=== PATIENT | male | born 1990 | race Caucasian/White ===

== ENCOUNTER 2020-02-07 09:53 | Inpatient (IN) | payer SELFPAY ==
[~2020-02-07] VITALS: Ht 180.3 cm; Wt 104.0 kg
[2020-02-07 16:09] VITALS: Ht 180.3 cm; Wt 104.0 kg
--- NOTE | 2020-02-07 16:09 | NUR ---
REC'D A 29/M IN BIBA FROM [facility] WITH C/O ALOC SINCE THE AM. PT BEEN AT [facility] 02/05/20. STAFF NOTICED PT WAS ALOC, NONVERBAL IN THE AM. PT AWAKE AFTER STERNAL RUB, UNCOMPREHENSIBLE SPEECH, RESP EU, IN ACUTE DISTRESS.
--- NOTE | 2020-02-07 16:30 | NUR ---
I ATTEMPTED VALLADARES INSERTION, PT WOKE UP AND TRIED TO YANK THE VALLADARES OUT.
--- NOTE | 2020-02-07 16:50 | NUR ---
EMT MELINDA SUMMONED ME OVER AND REPORTED PT URINATED ON THE GURNEY AND FLOOR. INFORMED PT THE NEED TO INSERT VALLADARES D/T ALTERED MENTAL STATUS. PT CONTINUES TO MOAN WITH INCOMPREHENSIBLE SPEECH. PT SLID DOWN THE GURNEY, UNABLE TO AMBULATE WITH STEADY GAIT.
--- NOTE | 2020-02-07 17:00 | NUR ---
PT CONTINUES TO BE UNCOOPERATIVE, SITTING ON THE FLOOR IN URINE. INSTRUCTED PT TO RETURN TO THE RQUITMAN, PT REFUSED. ASKED PT WHY HE IS HERE. PT UNABLE TO PROVIDE A COMPREHENSIBLE ANSWER. TIFFANY LAWRENCE, MYSELF, SULMA Da Silva AND FLAQUITO SIGNLETARY HELPED PT ONTO THE [facility]. 4 POINTS RESTRAINTS PLACED TO STAR WRIST AND STAR LLE.
--- NOTE | 2020-02-07 18:38 | NUR ---
REMOVED STAR LOWER EXTREMITIES RESTRAINTS.
[2020-02-07 18:50] LABS: BASOPHIL % 0.3 % (0.2-1.5); PLATELET COUNT 366 x10^3mcL (152-348); RED CELL DISTRIBUTION WIDTH 13.9 % (12.1-16.2)
--- NOTE | 2020-02-07 19:00 | NUR ---
PT COOPERATIVE ON CHRISTIANO. REMOVED STAR WRIST RESTRAINTS
--- NOTE | 2020-02-07 19:04 | NUR ---
PT TAKEN CT VIA [facility].
[2020-02-07 19:14] LABS: FREE T4 1.6 ng/dL (0.76-1.46); FREE THYROXINE INDEX 3.2 ug/dL (1.4-4.5); T4(THYROXINE) 8.3 ug/dL (4.7-13.3)
--- NOTE | 2020-02-07 19:15 | NUR ---
PT RETURNED TO H7 FROM CT WITHOUT INCIDENT.
[2020-02-07 19:23] LABS: UA SPECIFIC GRAVITY 1.025 (1.005-1.035); microscopic required? YES; urine erythrocyte TRACE (NEGATIVE)
[2020-02-07 19:25] LABS: T3 TOTAL 0.67 ng/mL
--- NOTE | 2020-02-07 19:52 | NUR ---
INITIATED ROCEPHIN AT 100ML/HR. PLEASE SEE EMAR.
[2020-02-07 19:57] LABS: ALBUMIN 3.5 g/dL (3.4-5.0); ALKALINE PHOSPHATASE 47 U/L (46-116); ALT/SGPT 137 U/L (16-63); AST/SGOT 73 U/L (15-37); BILIRUBIN TOTAL 1.3 mg/dL (0.20-1.00); C REACTIVE PROTEIN 1.3 mg/dL (<=0.9); CALCIUM 8.2 mg/dL (8.5-10.1); CARBON DIOXIDE 21.7 mmol/L (21-32); CHLORIDE SERUM 108 mmol/L (98-107); CREATININE SERUM 1.3 mg/dL (0.7-1.3); GFR1 > 60 mL/min; GLUCOSE SERUM 118 mg/dL (74-106); POTASSIUM SERUM 3.9 mmol/L (3.5-5.1); SODIUM SERUM 142 mmol/L (136-145); TOTAL PROTEIN, SERUM 7.6 g/dL (6.4-8.2)
[2020-02-07 20:02] LABS: CK-MB 3.8 ng/mL (0-3.6); ERYTHROCYTE SED RATE 57 mm/hr (0-15)
--- NOTE | 2020-02-07 20:07 | NUR ---
PT ASLEEP, EASILY AROUSABLE, RESP EU, IN NO ACUTE DISTRESS.
--- NOTE | 2020-02-07 20:22 | NUR ---
INITIATED ZPAK @ 250ML/HR. PLEASE SEE EMAR.
[2020-02-07 21:13] LABS: AMPHETAMINE QUAL UR NONE DETECTED (See below)
--- NOTE | 2020-02-07 21:47 | NUR ---
PROVIDED UPDATE TO BRIAN HUDDLESTON FROM [facility].
--- NOTE | 2020-02-07 22:23 | NUR ---
STAR PINPOINT PUPILS NOTED. DR CHURCHILL AT BEDSIDE. 0.4MG NARCAN, NO CHANGE 1MG NARCAN, NO CHANGE.
--- NOTE | 2020-02-07 22:23 | NUR ---
DR CHURCHILL AT BEDSIDE FOR REEVALUATION. PT WAKES UP AFTER STERNAL RUB, CONTINUES TO GARGLE INCOMPREHENSIBLE SPEECH, RESP EU, IN NO ACUTE DISTRESS.
--- NOTE | 2020-02-07 22:46 | NUR ---
PER PT, DR CHURCHILL, PREPARE FOR INTUBATION AND ANOTHER CT.
--- NOTE | 2020-02-07 23:01 | NUR ---
PT CONTINUES TO GARGLE INCOMPREHENSIBLE SPEECH, MOVES HIS EYES WHEN ASKED BY DR CHURCHILL TO "LOOK AT ME".
--- NOTE | 2020-02-07 23:04 | NUR ---
REPORT GIVEN TO FLAQUITO MCLEOD TO ASSUME CARE OF THE PT.
--- NOTE | 2020-02-07 23:18 | NUR ---
DR CHURCHILL AT BEDSIDE FOR INTUBATION.
--- NOTE | 2020-02-08 00:10 | NUR ---
TOOK OVER CARE OF PATIENT
--- NOTE | 2020-02-08 01:02 | NUR ---
PT TAKEN TO CT VIA [facility].
--- NOTE | 2020-02-08 01:22 | NUR ---
PT RETURNED TO BD [address] WITHOUT INCIDENT.
[2020-02-08 02:15] VITALS: BP 138/96
[2020-02-08 03:18] LABS: PHOSPHOROUS 3.1 mg/dL (2.5-4.9)
[2020-02-08 03:28] LABS: CHOLESTEROL/HDL RATIO 5.7
[2020-02-08 05:35] VITALS: BP 128/86
--- NOTE | 2020-02-08 05:35 | NUR ---
POST ABG RESULTS. DECREASED RESPIRATORY RATE FROM 20 TO 16 AND FIO2 FROM 15L/M TO 10L/M.
--- NOTE | 2020-02-08 07:05 | NUR ---
PT REMAINS IN NO ACUTE DISTRESS. WILL CONTINUE TO MONITOR FOR SAFETY
[2020-02-08 07:22] VITALS: BP 124/84
--- NOTE | 2020-02-08 07:27 | NUR ---
REPORT RECIEVED FROM FLAQUITO FRIAS. I WILL ASSUME FURTHER CARE OF THIS PT
--- NOTE | 2020-02-08 07:40 | NUR ---
PT NOTED LAYING IN ER GURNEY IN POSITION OF COMFORT. PT INTUBATED AT THIS TIME. RESP E/U, O2SAT 99%. PT LAYING IN RELAXED POSITION AT THIS TIME, NO DISTRESS NOTED. PT REMAINS IN BILATERAL UPPER RESTRAINTS. MEDICATIONS INFUSING PER EMAR ORDERS. VITAL SIGNS STABLE. WILL CONTINUE TO MONITOR
[2020-02-08 10:07] LABS: BASOPHIL % 0.1 % (0.2-1.5); PLATELET COUNT 335 x10^3mcL (152-348); RED CELL DISTRIBUTION WIDTH 13.9 % (12.1-16.2)
[2020-02-08 10:25] LABS: ALKALINE PHOSPHATASE 48 U/L (46-116); ALT/SGPT 137 U/L (16-63); AST/SGOT 68 U/L (15-37); BILIRUBIN TOTAL 1.2 mg/dL (0.20-1.00); CALCIUM 8.3 mg/dL (8.5-10.1); CARBON DIOXIDE 22.5 mmol/L (21-32); CHLORIDE SERUM 112 mmol/L (98-107); CREATININE SERUM 1.2 mg/dL (0.7-1.3); GFR1 > 60 mL/min; GLUCOSE SERUM 125 mg/dL (74-106); MAGNESIUM 2.9 mg/dL (1.8-2.4); PHOSPHOROUS 2.7 mg/dL (2.5-4.9); POTASSIUM SERUM 4.2 mmol/L (3.5-5.1); SODIUM SERUM 147 mmol/L (136-145); TOTAL PROTEIN, SERUM 6.9 g/dL (6.4-8.2)
[2020-02-08 10:27] LABS: ALBUMIN 3.2 g/dL (3.4-5.0)
[2020-02-08 11:23] LABS: CK-MB 4.2 ng/mL (0-3.6)
--- NOTE | 2020-02-08 13:36 | NUR ---
PT REMAINS IN POSITION OF COMFORT IN ER GURNEY. BILATERAL UPPER AND LOWER EXTREMITIES EXTENDED IN RELAXED POSITION. NO DISTRESS NOTED. RESP E/U AT THIS TIME O2 SAT 97% ON VENTILATOR. PROPOFOL INFUSING AT 50MCG/KG/MIN PER EMAR ORDERS. SIDE RAILS UP X 2, ER GURNEY IN LOWEST LOCKED POSITION. WILL CONTINUE TO MONITOR
--- NOTE | 2020-02-08 14:47 | NUR ---
PT NOTED LAYING WITH BILATERAL UPPER AND LOWER EXTREMITIES EXTENDED IN RELAXED POSITION. PT EYES REMAIN CLOSED, NO DISTRESS NOTED. PROPOFOL TITRATED DOWN TO 45MCG/KG/MIN PER EMAR ORDERS. WILL CONTINUE TO MONITOR
--- NOTE | 2020-02-08 15:08 | NUR ---
SPOKE TO RESIDENT MD REGARDING FAMILY UPDATE. PER RESIDENT, SHE WILL REACH OUT TO FAMILY TO UPDATE THEM ON PT PLAN OF CARE. WILL FOLLOW UP
--- NOTE | 2020-02-08 16:24 | NUR ---
PT LAYING IN ER GURNEY, EYES CLOSED, BILATERAL UPPER AND LOWER EXTREMITIES EXTENDED IN RELAXED POSITION, NO DISTRESS NOTED. RESP E/U, O2SAT 98% ON VENTILATOR. SAFETY PRECAUTIONS IN PLACE, SIDE RAILS UP X 2, GURNEY IN LOWEST, LOCKED POSITION. PT REMAINS IN BILATERAL UPPER RESTRAINTS. PROPOFOL INFUSING AT 45MCG/KG/MIN PER EMAR ORDERS. WILL CONTINUE TO MONITOR
[2020-02-08 17:15] VITALS: BP 131/84
--- NOTE | 2020-02-08 17:50 | NUR ---
PT NOTED LAYING IN POSITION OF COMFORT, EYES CLOSED, ALL EXTREMITIES EXTENDED AND RELAXED. PT RESP E/U ON VENTILATOR O2SAT 100%, NO DISTRESS NOTED. PROPOFOL TITRATED DOWN TO 40MCG/KG/MIN PER EMAR ORDERS. WILL CONTINUE TO MONITOR
[2020-02-08 19:30] VITALS: BP 123/90
--- NOTE | 2020-02-08 19:41 | NUR ---
REPORT GIVEN TO FLAQUITO ALVARENGA. SHE WILL ASSUME FURTHER CARE OF THIS PT
--- NOTE | 2020-02-08 19:47 | NUR ---
RECIEVED REPORT FROM JR HUDDLESTON TO ASSUME CARE OF PT.
--- NOTE | 2020-02-08 20:17 | NUR ---
FIRST CONTACT WITH PT. PT IS [place] IN [place]. PT IS INTUBATED AND ON VENT. HANDLING WELL. VSS. PT IS CURRENTLY ON PROPOFOL DRIP RUNNING AT 40 MCG/KG/MIN. PT TOLERATING WELL. NO ACUTE DISTRESS OR PAIN NOTED AT THIS TIME. WILL CONTINUE TO MONITOR.
--- NOTE | 2020-02-08 22:15 | NUR ---
PT NOTED TO BE IN POSITION OF COMFORT. BILATERAL UPPER AND LOWER EXTREMITIES IN EXTENDED AND RELAXED POSITION. PT REMAINS STABLE AND NO ACUTE DISTRESS NOTED AT THIS TIME. WILL CONTINUE TO MONITOR CLOSELY.
--- NOTE | 2020-02-08 23:19 | NUR ---
PT NOTED TO BE IN RELAZED POSITION. PT EYES CLOSED, AND BILATERAL UPPER AND LOWER EXTREMITIES ARE EXTENDED AND IN RELAXED POSITION. PT UNDER SEDATION AND TOLERATING WELL AT THIS TIME. WILL CONTINUE TO CLOSELY MONITOR.
--- NOTE | 2020-02-09 01:36 | NUR ---
PT IS CURRENTLY SUPINE, AND INTUBATED. PT SHOWS NO SIGN OF DISTRESS OR PAIN. PT IS SEDATED WITH PROPOFOL @ 30MCG/KG/MIN. VSS, WILL CONTINUE TO CLOSELY MONITOR.
[2020-02-09 02:10] VITALS: BP 128/90
--- NOTE | 2020-02-09 02:48 | NUR ---
PT REMAINS IN POSITON OF COMFORT. NO AGITATION OR ACUTE DISTRESS NOTED AT THIS TIME. PT EYES CLOSED. ALL EXTREMITIES ARE RELAXED, WILL CONTINUE TO MONITOR.
--- NOTE | 2020-02-09 03:38 | NUR ---
PT REMAINS IN POSITION OF COMFORT. PT EYES CLOSED, AND BILATERAL UPPER AND LOWER EXTREMITIES ARE IN RELAXED AND EXTENDED POSTION. NO DISTRESS NOTED. PT VS REMAINS STABLE AND TOLERATING SEDATION WELL. WILL CONTINUE TO MONITOR.
--- NOTE | 2020-02-09 04:18 | NUR ---
PT REMAINS IN POSTION OF COMFORT. NO ACUTE DISTRESS NOTED. PT EYES ARE CLOSED AND NOTED TO BE RELAXED. WILL CONTINUE TO MONITOR.
--- NOTE | 2020-02-09 05:31 | NUR ---
PT NOTED TO BE LYING IN POSTION OF COMFORT. EYES CLOSED, ALL EXTREMITIES RELAXED. NO ACUTE DISTRESS NOTED. VSS, AND PROPOFOL TITRATED DOWN TO 30 MCG/KG/MIN PER EMAR ORDERS. WILL CONTINUE TO MONITOR CLOSELY.
--- NOTE | 2020-02-09 06:25 | NUR ---
PT REMAINS CALM WITH NO SIGNS OF DISTRESS. PT EYES CLOSED AND BILATERAL UPPER AND LOWER EXTREMITIES RELAXED. NO ACUTE DISTRESS NOTED AT THIS TIME. PT REMAINS INTUBATED AND SEDATED. PROPOFOL 30 MCG/KG/MIN RUNNING. WILL CONTINUE TO MONITOR.
--- NOTE | 2020-02-09 07:30 | NUR ---
GAVE REPORT TO LYNETTE HUDDLESTON TO ASSUME FURTHER CARE OF PT.
--- NOTE | 2020-02-09 07:50 | NUR ---
PT LAYING ON GURNEY- RSS 4, ON VENTILATOR, AND RESTRAINED ON BILATERAL UPPER EXTREMITIES. PT ON PROPOFOL DRIP AND APPEARED TO BE TOLERATING WELL. PLACED HOB >30 DEGREES AND LOWERED BED TO GROUND WITH BED RAILS UP. NOTED PT VALLADARES CATH WITH AN OUTPUT OF 10ML INDIGO CLOUDY URINE. NOTED SOILED BED SHEETS AND BOXER SHORTS. NOTED LEAKAGE OF URINE FROM THE URETHRA ALONGSIDE THE CATHETHER. ATTEMPTED TO IRRIGATE VALLADARES CATH BUT MET WITH SOME RESISTANCE. NOTED WHAT APPEARS TO BE CALCIFIED URINE IN THE PROXIMAL END OF THE CATHETER. NOTED A DISTENDED BLADDER. VALLADARES CATH WAS REMOVED AND NOTED INCONTINENCE. PLACED A NEW VALLADARES CATH 14FR AND RECEIVED AN OUTPUT OF 400ML INDIGO CLOUDY URINE. PT WAS SUCTIONED AND DRIED, BED SHEETS REPLACED. NOTED CLODUY VELEZ SPUTUM. PT REMAINS IN DIRECT VIEW OF NURSES STATION. NO SKIN BREAKDOWN NOTED IN BILATERAL UPPER SOFT RESTRAINTS. PT BOXER SHORTS REMOVED AND PLACED IN BELONGINGS BAG. PT WAS PLACED IN A NEW GOWN.
--- NOTE | 2020-02-09 09:05 | NUR ---
MD SALAS AT BEDSIDE. STATED HE WANTS TO EXTUBATE THE PT. PROPOFOL DRIP STOPPED. RT NOTIFIED. STATED HE WILL BE BACK FOR EXTUBATION ONCE PT IS AWAKE.
[2020-02-09 09:20] VITALS: BP 138/94
--- NOTE | 2020-02-09 09:36 | NUR ---
PT PLACED BACK ON PROPOFOL DRIP 30MCG/KG/MIN PER MD.
[2020-02-09 10:16] LABS: BASOPHIL % 0.6 % (0.2-1.5); PLATELET COUNT 265 x10^3mcL (152-348); RED CELL DISTRIBUTION WIDTH 14.3 % (12.1-16.2)
[2020-02-09 10:19] LABS: CALCIUM 8.4 mg/dL (8.5-10.1); CARBON DIOXIDE 24.7 mmol/L (21-32); CHLORIDE SERUM 114 mmol/L (98-107); CREATININE SERUM 1.1 mg/dL (0.7-1.3); GFR1 > 60 mL/min; GLUCOSE SERUM 130 mg/dL (74-106); MAGNESIUM 2.6 mg/dL (1.8-2.4); POTASSIUM SERUM 4.2 mmol/L (3.5-5.1); SODIUM SERUM 148 mmol/L (136-145)
--- NOTE | 2020-02-09 11:00 | NUR ---
LEFT HAND IV INFILTRATED. NEW IV PLACED ON LEFT WRIST. PT REPOSITIONED TO RIGHT SIDE TO RELIEVE SACRAL PRESSURE. PT SEDATED AND TOLERATING PROPOFOL AND VENTILATOR.
--- NOTE | 2020-02-09 12:00 | NUR ---
CALLED [facility] FOR POSSIBLE MED REC - NO ANSWER FROM UNIT
--- NOTE | 2020-02-09 13:39 | NUR ---
PT REPOSITIONED TO LEFT SIDE. TOLERATING VENTILATOR AND SEDATION. REDUCED PROPOFOL TO 20MCG/KG/MIN.
--- NOTE | 2020-02-09 14:17 | NUR ---
TOTAL URINE OUTPUT APPROX 800ML, INDIGO CLOUDY
--- NOTE | 2020-02-09 15:03 | NUR ---
SPOKE TO PT'S SISTER KARINA WHO CALLED FOR AN UPDATE. STATES THAT THE PT SUFFERS FROM INSOMNIA. KARINA WAS UNABLE TO RETRIEVE A MED REC FOR THE PT.
[2020-02-09 15:45] VITALS: BP 146/64
--- NOTE | 2020-02-09 16:29 | NUR ---
PT REMAINS ON GURNEY S/F. INCREASED PROPOFOL DRIP TO 30MCG/KG/MIN D/T INCREASED AGITATION. 800ML TOTAL URINE OUTPUT NOTED. REMAINS ON BILATERAL WRIST RESTRAINTS.
--- NOTE | 2020-02-09 18:35 | NUR ---
APPROX 1000ML TOTAL URINE OUTPUT. PROPOFOL INCREASED TO 40MCG/KG/MIN FOR RSS 4 D/T PT OPENING EYES AND WAS ABLE TO NURSES' ASSOCIATION COUNSELOR MY FINGERS UPON COMMAND.
--- NOTE | 2020-02-09 19:00 | NUR ---
PROPOFOL REPLACED WITH A NEW BOTTLE. IV TUBING ALSO REPLACED.
--- NOTE | 2020-02-09 20:24 | NUR ---
RECIEVED REPORT FROM LYNETTE HUDDLESTON. I WILL ASSUME FURTHER CARE OF PT.
--- NOTE | 2020-02-09 20:32 | NUR ---
FIRST CONTACT WITH PT. PT IS LAYING SUPINE IN GURNEY, BILATERAL UPPER AND LOWER EXTREMITES IN RELAXED POSTION. PT FACE RELAXED AND NO SIGNS OF DISTRESS NOTED AT THIS TIME. VSS AND WILL CONTINUE TO CLOSELY MONITOR.
[2020-02-09 21:10] VITALS: BP 140/96
--- NOTE | 2020-02-09 21:22 | NUR ---
PT CURRENTLY IN [facility] IN SEMI FOWLERS POSITION. EYES CLOSED AND BILATERAL UPPER AND LOWER EXTREMITIES EXTENDED AND IN RELAXED POSTION. FACE RELAXED AND NO SIGNS OF DISTRESS OR PAIN AT THIS TIME. PROPOFOL INFUSING PER MD ORDER AT 40 MCG/KG/MIN. SEDATION EFFECTIVE AT THIS TIME. WILL CONTINUE TO CLOSELY MONITOR.
--- NOTE | 2020-02-09 22:53 | NUR ---
PT LAYING IN POSITION OF COMFORT WITH EYES CLOSED. PT BILATERAL UPPER AND LOWER EXTREMITIES EXTENDED AND IN RELAXED POSITION. PT VSS AND NO ACUTE DISTRESS NOTED. ET TUBE IN PLACE AND TOLERATING SEDATION WELL AT THIS TIME. PROPOFOL RUNNING AT 40 MCG/KG/MIN. WILL CONTINUE TO MONITOR.
--- NOTE | 2020-02-09 23:49 | NUR ---
PT IS LAYING IN POSITION OF COMFORT WITH EYES CLOSED. PT BILATERAL UPPER AND LOWER EXTREMITIES ARE EXTENDED AND IN RELAXED POSITION. PT VSS AND NO SIGNS OF ACUTE DISTRESS OR PAIN NOTED AT THIS TIME. PT PROPOFOL DRIP RUNNING AT A RATE OF 40 MCG/KG/MIN, PT TOLERATING SEDATION LEVEL WELL AT THIS TIME. WILL CONTINUE TO MONITOR.
[2020-02-10] VITALS (10 sets, daily range): BP systolic 117–143; BP diastolic 64–92
--- NOTE | 2020-02-10 00:46 | NUR ---
PT IS LAYING SUPINE IN GURNEY IN POSITION OF COMFORT. EYES CLOSED AND FACE IS RELAXED. PT BILATERAL UPPER AND LOWER EXTREMITIES ARE EXTENDED AND IN RELAXED POSITION. PT VSS AND NO ACUTE DISTRESS OR PAIN NOTED AT THIS TIME. WILL CONTINUE TO CLOSELY MONITOR.
--- NOTE | 2020-02-10 01:50 | NUR ---
PT IS CURRENTLY LAYING IN GURNEY IN POSITION OF COMFORT. ALL EXTREMITIES ARE IN RELAXED POSITION, FACE IS RELAXED NO GRIMACING OR SIGNS OF DISTRESS NOTED AT THIS TIME. PROPOFOL DRIP IS 40 MCG/KG/HR. PT TOLERATING SEDATION WELL AT THIS TIME. VSS AND WILL CONTINUE TO MONITOR.
--- NOTE | 2020-02-10 03:50 | NUR ---
RECEIVED REPORT FROM CANE WEIGHER HELPERFLAQUITO FIELDS. PT IS INTUBATED AND SEDATED ON PROP 40 MCG/KG/MIN. PT ETT 8.0 @ 25 LL. OGT NO SUCTION, NO FEEDING AT THIS TIME. PT HAS NS INFUSING AT 80 ML/HR. LUNG SOUNDS CLEAR, S1S2 HEART SOUNDS AUSCULTATED. WILL ASSESS.
[2020-02-10 07:08] LABS: BASOPHIL % 0.4 % (0.2-1.5); PLATELET COUNT 223 x10^3mcL (152-348); RED CELL DISTRIBUTION WIDTH 14.2 % (12.1-16.2)
[2020-02-10 07:19] LABS: CALCIUM 8.7 mg/dL (8.5-10.1); CARBON DIOXIDE 25.6 mmol/L (21-32); CHLORIDE SERUM 114 mmol/L (98-107); GFR1 > 60 mL/min; GLUCOSE SERUM 108 mg/dL (74-106); MAGNESIUM 2.7 mg/dL (1.8-2.4); POTASSIUM SERUM 4.3 mmol/L (3.5-5.1); SODIUM SERUM 148 mmol/L (136-145)
--- NOTE | 2020-02-10 09:40 | NUR ---
VENT CHANGED FOR CPAP TRIALS LATER. VENT CHANGED WITHOUT INCIDENT
--- NOTE | 2020-02-10 10:05 | NUR ---
DR VASQUEZ AT BEDSIDE. ALL UPDATES PROVIDED, MADE AWARE OF Na:148. AWAITING NEW ORDERS.
--- NOTE | 2020-02-10 12:00 | NUR ---
CPAP TRIAL INITIATED AT THIS TIME. PT IS STABLE. WILL CONTINUE TO MONITOR PT.
--- NOTE | 2020-02-10 12:30 | NUR ---
PT WAS PLACED ON CPAP OF 10/[address] SALAS
--- NOTE | 2020-02-10 12:35 | NUR ---
VITAL AF 1.2 INITIATED AT THIS TIME. INFUSING AT 10ML/HR (GOAL:50ML/HR) WITH 50ML FWF Q4H. WILL CONTINUE TO MONITOR.
--- NOTE | 2020-02-10 13:25 | NUR ---
PT SWITCHED BACK TO ACVC DUE TO TACHPNEA RR;30'S AND TACHYCARDIA.
--- NOTE | 2020-02-10 13:25 | NUR ---
PT TACHYCARDIC, RR TRENDING UP. RTKATHY MADE AWARE. PT SWITCHED OVER FROM CPAP BACK TO VC MODE. RATE:16, VT:500, PEEP:5, 40%
--- NOTE | 2020-02-10 16:09 | NUR ---
DR MARTELL CALLED AT THIS TIME. PT RESTLESS, TACHYCARDIC IN THE 140'S AND RR TRENDINGG HIGH. AWAITING NEW ORDERS. WILL CONTINUE TO MONITOR PT.
--- NOTE | 2020-02-10 17:54 | NUR ---
CALLED RESIDENT AT THIS TIME, PT CONTINUES TO BE RESTLESS AND ANXIOUS. AWAITING CALL-BACK.
--- NOTE | 2020-02-10 18:03 | NUR ---
DR. MARTELL CALLED BACK AND NOTIFIED PT CONTINUES TO BE ANXIOUS, TACHYCARDIC AND TACHYPNEIC DESPITE ATIVAN ADMINISTRATION. DR TILLMAN SHE WILL PUT IN ORDERS.
--- NOTE | 2020-02-10 18:52 | NUR ---
RESTLESSNESS AND ELEVATED HR AND RR CONTINUE. PT REPOSITIONED FOR COMFORT, HOB ELEVATED. DR. MARTELL MADE AWARE. AWAITING NEW ORDERS.
--- NOTE | 2020-02-10 19:03 | NUR ---
FIO2 INCREASED TO 100% DUE TO TACHYCARDIA 140'S
--- NOTE | 2020-02-10 19:25 | NUR ---
REPORT TO FLAQUITO BUSBY. ALL QUESTIONS ANSWERED.
--- NOTE | 2020-02-10 20:46 | NUR ---
PT TEMPERATURE 100.4, GAVE 650 MG TYLENOL.
[2020-02-11] VITALS (8 sets, daily range): BP systolic 11–127; BP diastolic 69–79
[2020-02-11 06:58] LABS: CALCIUM 8.4 mg/dL (8.5-10.1); CARBON DIOXIDE 25.1 mmol/L (21-32); CHLORIDE SERUM 111 mmol/L (98-107); GFR1 > 60 mL/min; GLUCOSE SERUM 149 mg/dL (74-106); MAGNESIUM 2.3 mg/dL (1.8-2.4); PHOSPHOROUS 2.9 mg/dL (2.5-4.9); POTASSIUM SERUM 4.1 mmol/L (3.5-5.1); SODIUM SERUM 142 mmol/L (136-145)
--- NOTE | 2020-02-11 07:41 | NUR ---
CALLED RTBRANNON, AND ASKED TO LOWER FIO2. CURRENT FIO2 IS 100% AND PT SPO2 HAS BEEN AT 100% SINCE SENIOR LEAD DEVELOPER. RT WILL COME AND LOWER FIO2.
--- NOTE | 2020-02-11 08:00 | NUR ---
TITRATED PROPOPHOL FROM 50 TO 40MCG/KG/MIN. PT VS: BP: 125/79, HR: 120, RR: 23, SPO2: 100%, T: 100.8. WILL CONTINUE TO TITRATE APPROPRIATE.
--- NOTE | 2020-02-11 08:35 | NUR ---
TITRATED FIO2 FROM 100 TO 90% D/T PT SPO2 OF 100%. RT HAS NOT COME BY YET, WILL LET RT KNOW OF CHANGE IN SETTING.
--- NOTE | 2020-02-11 08:42 | NUR ---
UPDATED DR. SALAS ON PT STATUS AT BEDSIDE. NEW ORDERS TO INITIATE PRECEDEX GTT WILL BE IMPLEMENTED. DR. SALAS LOWERED FIO2 FROM 90 TO 60% D/T PT SPO2 OF 100%.
--- NOTE | 2020-02-11 09:10 | NUR ---
TITRATED FIO2 FROM 60 TO 50% D/T SPO2 OF 100%. CUURENT SPO2 IS 99%. WILL UPDATE RT ON CHANGE IN FIO2.
--- NOTE | 2020-02-11 09:20 | NUR ---
MODERATE AMOUNT OF BLOOD-TINGED SECRETIONS NOTED WITH DEEP IN-LINE SUCTIONING. MODERATE AMOUNT OF CLEAR SECRETIONS NOTED FROM MOUTH WITH YANKEUR. WILL UPDATE RT ON FINDINGS.
--- NOTE | 2020-02-11 10:40 | NUR ---
CPAP TRIAL INITIATED BY RTBERNABE, THEN ENDED AFTER 1 MINUTE D/T PT HR OF 130. WILL CALL RT TO RESTART CPAP AFTER PRECEDEX ORDER VERIFIED AND INITIATED. FIO2 LOWERED FROM 50 TO 40%. SPO2: 100%
--- NOTE | 2020-02-11 11:32 | NUR ---
UPDATED DR. VASQUEZ AND RESIDENT TEAM ON PT STATUS AT BEDSIDE. UPDATED ON CPAP TRIAL, PRECEDEX GTT INITIATION, BLOOD-TINGED SPUTUM IN ETT, BLOOD IN VALLADARES, AND HEPARIN HELD THIS AM. ASKED IF D5 MAINTENANCE FLUIDS WERE STILL NEEDED, WAS TOLD TO DC BECUASE TF HAD BEEN INITIATED. WILL IMPLEMENT NEW ORDERS AND UPDATE NEEDED.
--- NOTE | 2020-02-11 11:45 | NUR ---
TITREATED FIO2 FROM 40 TO 30%. SPO2 CURRENTLY 98%. WILL UPDATE RT AND TITRATE FIO2 NEEDED.
--- NOTE | 2020-02-11 12:15 | NUR ---
INITIATED PRECEDEX GTT AT 0.2MCG/KG/HR AND INCREASED PROPOFOL FROM 10 TO 15MCG/KG/MIN. HR: 125, BP: 132/89, SPO2: 96%, RR: 31. WILL CONTINUE TO TITRATE MEDICATIONS NEEDED.
[2020-02-11 13:14] LABS: BASOPHIL % 0.4 % (0.2-1.5); PLATELET COUNT 191 x10^3mcL (152-348); RED CELL DISTRIBUTION WIDTH 14.1 % (12.1-16.2)
--- NOTE | 2020-02-11 13:30 | NUR ---
INITIATED CPAP WITH RTBERNABE, AT THIS TIME. PT TOLERATING CPAP TRIAL WELL, VS: BP- 123/73, SPO2: 97%, HR: 112BPM, RR: 26. WILL CONTINUE TO CPAP LONG PT TOLERATES IT.
--- NOTE | 2020-02-11 15:05 | NUR ---
PT EXTUBATED AT THIS TIME WITH RT BERNABE. COOL AEROSOL TREATMENT GIVEN AT 1320. VS STABLE: BP: 112/77 MAP: 94, HR: 115, RR: 29, SPO2 97%. PT ON 28% COOL MIST.
--- NOTE | 2020-02-11 16:31 | NUR ---
UNABLE TO RETRIEVE UIRINE SAMPLE FOR UA AT THIS TIME D/T NO PRODUCTION OF FRESH URINE BY PT. WILL COLLECT SAMPLE WHEN PT MAKES URINE.
--- NOTE | 2020-02-11 16:50 | NUR ---
IRRIGATED VALLADARES CATHETER WITH 40CC OF STERILE WATER. SMALL AMOUNT OF CLEAR, YELLOW URINE DRAINED AFTERWARDS.
[2020-02-11 20:40] LABS: UA SPECIFIC GRAVITY >=1.030 (1.005-1.035); microscopic required? YES; urine erythrocyte 2+ (NEGATIVE)
[2020-02-12 00:30] VITALS: BP 124/69
[2020-02-12 04:00] VITALS: BP 128/80
[2020-02-12 05:05] LABS: PLATELET COUNT 175 x10^3mcL (152-348); RED CELL DISTRIBUTION WIDTH 13.9 % (12.1-16.2)
[2020-02-12 05:42] LABS: CALCIUM 8.6 mg/dL (8.5-10.1); CHLORIDE SERUM 109 mmol/L (98-107); GFR1 > 60 mL/min; GLUCOSE SERUM 124 mg/dL (74-106); MAGNESIUM 2.5 mg/dL (1.8-2.4); PHOSPHOROUS 2.8 mg/dL (2.5-4.9); POTASSIUM SERUM 4.4 mmol/L (3.5-5.1); SODIUM SERUM 145 mmol/L (136-145)
[2020-02-12 08:00] VITALS: BP 123/71
--- NOTE | 2020-02-12 09:01 | NUR ---
DR SALAS AT BEDSIDE AT ALL UPDATES PROVIDED. HE STS TO KEEP PATIENT IN ICU AT THIS TIME SINCE PATIENT IS TACHYCARDIC AND UNABLE TO FOLLOW COMMANDS, NEW ORDERS FOR MRI AND TELE NEURO. NO OTHER NEW ORDERS. PRIMARY RN DONNIE MADE AWARE, WILL CARRY OUT ORDERS AND CONTINUE TO MONITOR PT. PT STABLE AT THIS TIME.
--- NOTE | 2020-02-12 09:05 | NUR ---
INFORMED [facility] BUR[facility] OF DR SALAS ORDERING A MRI OF BRAIN, HE STS HE WILL ASK HIGHER UP TO SEE IF THIS STUDY RECEIVES APPROVAL. PATIENT STABLE WILL CONTINUE TO MONITOR AND AWAIT APPROVAL AT THIS TIME.
--- NOTE | 2020-02-12 09:11 | NUR ---
PATIENT IS A 29 YEAR OLD MALE ADMITTED TO [place] FROM [facility] FOR ACUTE PYSCHOTIC DISORDER. LOWER LOBE PNA WAS NOTED ON ADMISSION. PATIENT WAS COMBATIVE BIPAP AND VALLADARES WERE ATTEMTED WITH NO LUCK DUE TO HIM PULLING ON ALL LINES. ON 02/06 HE WAS INTUBATED VALLADARES WAS PLACED 14FR DRAINING NOW. HE WAS EXTUBATED ON 02/10. REPORTED RECIVED FROM NOC SHIFT NURSE PATIENT IS STILL SEDATED AND NOT FOLLOWING COMMANDS. UPON AM ASSESSMENT PATIENT WAS ABLE TO SQUEEZE HAND WHEN PROMPTED BUT REMAINS NON-VERBAL. NC IN PLACE 3L SATURATING 96%. SINUS TACHY NOTED ON MONITOR 103BMP. DR SAALS ROUNDED MRI ORDERED FOR NEURO ALTERATION. INFORMED CHARGE NURSE PRECEDEX WAS FOUND RUNNING, IT WAS STOPPED. THIS COULD BE AFFECTING HIS NEURO STATE AT THIS TIME.
--- NOTE | 2020-02-12 09:41 | NUR ---
PSYCH CONSULT ORDERED AND PENDING AT THIS TIME FOR EVALUATION TO AID IN DISCHARGE BACK TO [facility]. PRECEDEX STOPPED NEURO CONSULT NOT ORDERED YET MAY NOT BE WARRANTED YET PENDING MEDICATION ELIMINATION.
--- NOTE | 2020-02-12 10:49 | NUR ---
DR SALAS INFORMED OF PATIENT BEING ON PRECEDEX, HE STS TO CANCEL MRI AND TELE NEURO AND CONTINUE TO MONITOR PATIENT. PT STABLE WILL CONTINUE TO MONITOR.
--- NOTE | 2020-02-12 11:38 | NUR ---
SPOKE WITH KARINA AND UPDATED HER REGARDING PLAN OF CARE FOR THE DAY: SHE WAS ASKING IF HE IS MORE LUCID TO BE ABLE TO SPEAK WITH HIM, I EXPLAINED HE IS STILL DOWSY AND WE ARE MONITORING HIM, HE WAS ABLE TO FOLLOW SIMPLE COMMANDS BUT REMAINS NON VERBAL. SHE IS AWARE AND WILL CALL BACK LATER FOR A UPDATE IF SHE HAS TIME.
--- NOTE | 2020-02-12 11:47 | NUR ---
UPON ASSESSMENT PATIENT IS MORE AWAKE: ABLE TO SAY YES AND NO EXPLAINED KARINA CALLED HE WANTED TO KNOW FOR WHAT. HE STATES HE IS NOT IN PAIN JUST TIRED. WILL CONTINUE TO MONITOR THE PATIENT.
[2020-02-12 12:00] VITALS: BP 118/66
--- NOTE | 2020-02-12 12:12 | NUR ---
DR VASQUEZ AND TEAM ROUNDED: PATIENT WAS STARTED ON D5NS 100 DUE TO NPO STATUS, POSSIBLE SWALLOW EVALUATION IN AM TO SEE EATING REQURIMENTS AND ABILITIES. PATIENT IS ABLE TO ANSWER YES OR NO WHEN THEY ROUNDED, ZOSYN RUNNING AT THIS TIME. STILL PENDING [facility] CONSULT.
[2020-02-12 16:00] VITALS: BP 118/70
--- NOTE | 2020-02-12 16:45 | NUR ---
PATIENT ALERT TO HIS NAME AND PLACE AT THIS TIME. COMPLAINTS OF PAIN BUT DOES NOT WANT ANY MEDICATION. WILL CONTINUE TO CHECK PAIN STATUS. HE CLAIMS TO HAVE ANXIETY NO PRN'S WILL BE GIVING DUE TO SEDATION COMING OFF FROM S/P INTUBATION. WILL ENDORSE ALL NESSACRY CARE TO NOC SHIFT NEEDED.
[2020-02-12 19:20] VITALS: BP 124/70
--- NOTE | 2020-02-12 23:17 | NUR ---
PT AWAKE REQUESTING WATER. DID SWALLOW EVALUATION PT ABLE TO SWALLOW WATER. GAVE PT SIP OF WATER AND SOME ICE CHIPS.
--- NOTE | 2020-02-13 00:05 | NUR ---
PT TRANSFERRING TO [facility]. GAVE REPORT TO FLAQUITO ARCHULETA. WILL TRANSPORT ONCE PT IS READY.
--- NOTE | 2020-02-13 00:50 | NUR ---
PT RECIEVED FROM ICU. PT RESTING IN BED AT THIS TIME. DENIES PAIN OR DISCOMFORT. PT BREATHING E/U ON 2L NC. NO S/S OF ACUTE DISTRESS AT THIS TIME. PT ORIENTED TO BED AND SURROUNDINGS.
[2020-02-13 01:00] VITALS: BP 116/77
--- NOTE | 2020-02-13 01:01 | NUR ---
PT STATING SI AT THIS TIME. STATES NO PLAN. MD SANTIAGO MADE AWARE. PER 1:1 SITTER ORDER WILL BE PLACED.
[2020-02-13 05:59] VITALS: BP 117/73
--- NOTE | 2020-02-13 06:56 | NUR ---
PT RESTING IN BED AT THIS TIME. DENIES PAIN OR DISCOMFORT. PT BREATHING E/U ON 2L NC. SITTER AT BEDSIDE. NO S/S OF ACUTE DISTRESS AT THIS TIME. WILL ENDORSE TO DAY NURSE.
--- NOTE | 2020-02-13 08:55 | NUR ---
RECEIVED PATIENT FROM DIRECTOR OF PULMONARY UNIT RN. PATIENT A/OX4, SLOW TO RESPOND. PATIENT ON 2L NC SPO2 AT 95%, NO C/O PAIN OR SOB AT THIS TIME. TELE #7. NO C/O CHEST PAIN AT THIS TIME. DENIES DIZZINESS OR PEDRO. IV TO LEFT WRIST C/D/I AND INFUSING NS AT 100 ML/HR. SITTER AT BEDSIDE. COMFORT AND SAFETY MEASURES IN PLACE. CALL LIGHT WITHIN REACH. WILL CONTINUE WITH PLAN OF CARE.
[2020-02-13 09:22] VITALS: BP 119/77
[2020-02-13 09:29] LABS: BASOPHIL % 0.4 % (0.2-1.5); PLATELET COUNT 165 x10^3mcL (152-348); RED CELL DISTRIBUTION WIDTH 13.9 % (12.1-16.2)
[2020-02-13 10:12] LABS: CALCIUM 8.6 mg/dL (8.5-10.1); CHLORIDE SERUM 112 mmol/L (98-107); CREATININE SERUM 0.9 mg/dL (0.7-1.3); GFR1 > 60 mL/min; GLUCOSE SERUM 136 mg/dL (74-106); MAGNESIUM 2.5 mg/dL (1.8-2.4); PHOSPHOROUS 2.4 mg/dL (2.5-4.9); SODIUM SERUM 146 mmol/L (136-145)
[2020-02-13 10:21] LABS: CARBON DIOXIDE 23.8 mmol/L (21-32)
--- NOTE | 2020-02-13 14:49 | NUR ---
LATE NOTE SPOKE TO PATIENTS SISTER, KARINA [phone], OVER TELEPHONE. GAVE UPDATE ON PATIENTS STATUS. ALL CONCERNS AND QUESTIONS ADDRESSED. SITTER AT BEDSIDE. WILL CONTINUE TO MONITOR PATIENT INTERMITTENTLY.
--- NOTE | 2020-02-13 15:28 | NUR ---
1. Recommend Regular diet with texture and liquid consistency recommended by GANDY DANCER.
--- NOTE | 2020-02-13 15:28 | NUR ---
Initial Nutrition Assessment: AbhiA YONG LAKE 29M Dx: Respiratory failure, ALOC PMHx: Psychosis, none noted PSHx: none noted Labs: (02/11) BG 124H, Mg 2.5H, (02/07) albumin 3.2L, (02/06) CRP 1.3H, TAG 177H, HDL 22L, Amylase 223H, Lipase 758H, A1C 6% Meds: Zosyn, D5%, Heparin sodium, Pepcid, Zofran, Tylenol, Colace, Ativan TF order: Vital 1.2 at 50ml/hr and fwf 50ml Q4H TF infusion: (02/11) 304ml, (02/10) 294ml Ht:180.34cm/71in Wt: 104kg/229lbs BMI: 32kg/m2 Bed scale: 52.3lbs (possible bed scale malfunctioning) IBW: 78.18kg/172lbs %IBW: 133.02% ABW: 85kg UBW: 280lbs per pt with unknown time frame Age: 29 Food Allergies: none noted Edema: none noted Last BM: 02/12 noted in I/Os Skin: skin intact, no wound noted Luis Manuel: 13 Per H and P (02/07), Pt is a 29 yo male with psychosis history presents from [facility] for altered level of consciousness x 1 day. Patient voluntarily admitted himself to [facility] and was found altered by staff at the facility with pinpoint pupils. He was given Narcan on the field with no improvement. Reports of bizarre behavior and paranoia. Records state he was on Zyprexa daily, and Ativan and Ambien PRN. In the ED patient was uncooperative. He then became unresponsive to pain with pinpoint pupils. He was given Narcan again in the ED with no improvement, thus was intubated for airway protection. Pt was admitted with dx: Acute metabolic encephalopathy, acute hypoxic respiratory failure, rhabdomyolysis, DVT. RD Note (02/13/2020) Per progress note (02/12), Per psych consult by Dr. Calloway: 1. Unspecified psychosis, 2. high suspicion for prodromal schizophrenia, and 3. R/o any substance-induced symptoms. Pt was seen lying in bed and verbally responsive during visit. TF was not in place. Per pt, he didn't have GI distress, but pt had c/o swallowing difficulty. Pt could not recall if there was recent weight changes and his usual body weight was 280lbs. Pt could not recall when was UBW measured. Spoke with pt's RN, and RN reported that pt used to be on tube feeding, but right now pt is NPO d/t pending swallow evaluation. Problem with: N/V/D/C: none noted Problems with: Chewing: Swallowing: swallowing difficulty Current appetite: n/a d/t pt currently NPO and previously on TF. Swallow evaluation pending Recent wt change: none per pt %wt change: n/a Height:6'1" per pt Vitamin/Supplement use: none per pt Special diet at home: none per pt Physical activity: running once a month per pt Nutrition education given (specify specific nutrition education and handout given): not given at this time Food-drug interactions? Education given? n/a Estimated Nutritional Needs Based on adjusted body weight (85kg) Energy: 4215-4952 kcal/day (22-25 kcal/kg for weight reduction) Protein: 85-102 g/day (1-1.2 g/kg for lean body mass preservation) Fluid: 6869-2420 mL/day (1 mL/kcal) Nutrition Diagnosis: 1. Inadequate energy and protein intake r/t NPO status a/e/b pt current NPO pending swallow evaluation. Intervention 1. Recommend Regular diet with texture and liquid consistency recommended by NURSES AIDE. Monitor/Evaluate Goal: PO intake at least 75% of estimated needs Monitor: PO intake, Labs, GI function, diet implementation, Swallow evaluation F/U in 2-3 days as high risk 6-7
[2020-02-13 17:06] VITALS: BP 129/98
--- NOTE | 2020-02-13 17:50 | NUR ---
PT WAS SEEN FOR DYSPHAGIA. PT WAS ABLE TO SAFELY SWALLOW PUREE DIET WITH NECTAR THICK. MILD COUGH FOR THIN LIQUID. RECOMMENDATION PUREE DIET WITH NECTAR THICK LIQUID.
--- NOTE | 2020-02-13 18:01 | NUR ---
P.T. NOTES P.T. EVAL COMPLETED; REFER TO EVAL FOR DETAILS; O2 SAT ROOM AIR=91%
--- NOTE | 2020-02-13 19:13 | NUR ---
PATIENT A/OX4 ON 2 L NC. NO C/O PAIN OR SOB NOTED AT THIS TIME. BREATHING REGULAR AND UNLABORED. PATIENT IN BED AWAKE AND ALERT. ON TELE #7. VALLADARES DRAINING INDIGO URINE EMPTIED 100CC. IV TO L WRIST 20G C/D/I AND PATENT, SALINE LOCKED. COMFORT AND SAFETY MEASURES IN PLACE. CALL LIGHT WITHIN REACH. SITTER AT BEDSIDE. WILL ENDORSE TO LANGUAGE PATH RN.
--- NOTE | 2020-02-13 20:00 | NUR ---
PT RECIEVED AAO REG RESP NO SOB R/A SAT 96%,ABDO IS SOFT WITH ACTIVE BOWEL SOUNDS,IV INFUSING WELL WITH THE SITE PATENT AND INTACT,BED IN THE LOW POSITION AND LOCKED,KEPT CLEAN AND DRY TO TOUCHN AND WILL CONTINUE TO MONITOR.
[2020-02-14 05:36] VITALS: BP 117/76
--- NOTE | 2020-02-14 05:55 | NUR ---
PT HAD A RESTING NIGHT NO CHANGE AT THIS TIME,WILL CONTINUE TO MONITOR.
--- NOTE | 2020-02-14 05:57 | NUR ---
PT HAD A RESTING NIGHT NO CHNAGE AT THIS TIME,WILL CONTINUE TO MONITOR.
[2020-02-14 07:40] LABS: BASOPHIL % 0.7 % (0.2-1.5); PLATELET COUNT 147 x10^3mcL (152-348); RED CELL DISTRIBUTION WIDTH 13.7 % (12.1-16.2)
[2020-02-14 08:01] LABS: CALCIUM 8.2 mg/dL (8.5-10.1); CARBON DIOXIDE 23.8 mmol/L (21-32); CHLORIDE SERUM 109 mmol/L (98-107); GFR1 > 60 mL/min; GLUCOSE SERUM 121 mg/dL (74-106); MAGNESIUM 2.3 mg/dL (1.8-2.4); PHOSPHOROUS 2.9 mg/dL (2.5-4.9); POTASSIUM SERUM 3.4 mmol/L (3.5-5.1); SODIUM SERUM 142 mmol/L (136-145)
--- NOTE | 2020-02-14 11:07 | NUR ---
RECIEVED REPORT FROM PM NURSE. PT A/O X4, FOLLOWS 2-STEP COMMANDS. TELE 1, ST. S1 S2 NOTED. PULSES EQUAL, PALPABLE. NO EDEMA NOTED, CAP REFILL <3 SEC, COLOR APPROPRIATE FOR ETHNICITY. LUNG SOUNDS DIM TA, 2L NC, BREATHING EVEN, UNLABORED. BOWEL SOUNDS ACTIVE X4, LAST BM 02/11/20. VALLADARES CATHETER IN PLACE. RED GRANULAR SEDIMENT IN URINE. HAVE TRIED CALLING DR. MARTELL REGARDING THIS. GENERALIZED WEAKNESS, BHAVNA BLE. PT AT BESIDE, PATIENT UNABLE TO STAND FOR LONG PERIODS OF TIME. SKIN INTACT, SCARS TISSUE NOTED LFA. PT REPORTS PAIN AND WEAKNESS THROUGHOUT BODY. LW IV 22G RUNNING D5W @100 ML/HR. IV PATENT, NO S/S INFILTRATION. WILL CONTINUE TO MONITOR
--- NOTE | 2020-02-14 11:35 | NUR ---
DR. MARTELL AWARE OF RED SEDIMENT IN PT URINE.
--- NOTE | 2020-02-14 13:06 | NUR ---
COLLECTED CLEAN CATCH SPECIMEN. WILL CONTINUE TO MONITOR
[2020-02-14 15:11] LABS: microscopic required? YES; urine erythrocyte NEGATIVE (NEGATIVE)
--- NOTE | 2020-02-14 15:38 | NUR ---
DR. ROTH AT BEDSIDE. WEANED PT SUPPLEMENTAL O2 DOWN TO RA, PT TOLERATING WELL. NO WOB/SOB NOTED. BREATHING EVEN, UNLABORED, NO ACUTE DISTRESS/DISCOMFORT. PT HAS NO FURTHER QUESTIONS/CONCERNS. WILL CONTINUE TO MONITOR. BED IN LOWEST POSITION, RAILS UP, CALL LIGHT WITHIN REACH
[2020-02-14 16:30] VITALS: BP 130/88
--- NOTE | 2020-02-14 18:52 | NUR ---
INFORMED IMPORT/EXPORT SPECIALIST RESIDENT THAT PT CANNOT SWALLOW PUREE DIET. STATED HE WILL PUT IN ORDER FOR SWALLOW EVAL 02/15/20. VALLADARES D/C, URINAL PROVIDED FOR PT. LARGE PAINFUL BUMPS NOTED ON BACKSIDE OF PT HEAD, PT STATES HE DID NOT HAVE THEM BEFORE BEING ADMITTED TO HOSPITAL. WILL ENDORSE TO PM NURSE. BED IN LOWEST POSITION, RAILS UP, CALL LIGHT WITHIN REACH
--- NOTE | 2020-02-15 02:48 | NUR ---
PATIENT IN BED,AWAKE,ALERT AND ORIENTED.SKIN WARM AND DRY TO TOUCH. RESPIRATION EVEN AND UNLABORED,NO RESPIRATORY DISTRESS.ONO2 AT 2L/MIN VIA N/C FOR SOB WITH GOOD RELIEF WITH O2 SAT 95% LUNGS SOUND DIMINISHED KEVEN AUSCULTATION.ON NST ON TELE 7. VOIDING FREELY CONTINENTLY. ON 1:1 SITTER ,NO EPISODES OF VERBALZATION OF SUICIDAL IDEATION ,CALL LIGHT WITHIN REACH. KEPT COMFORTABLE.
[2020-02-15 05:21] VITALS: BP 106/74
[2020-02-15 12:19] VITALS: BP 131/82
[2020-02-15 12:21] LABS: BASOPHIL % 0.4 % (0.2-1.5); PLATELET COUNT 154 x10^3mcL (152-348); RED CELL DISTRIBUTION WIDTH 13.5 % (12.1-16.2)
[2020-02-15 12:59] LABS: CALCIUM 8.1 mg/dL (8.5-10.1); CHLORIDE SERUM 105 mmol/L (98-107); CREATININE SERUM 0.8 mg/dL (0.7-1.3); GFR1 > 60 mL/min; GLUCOSE SERUM 125 mg/dL (74-106); MAGNESIUM 2.2 mg/dL (1.8-2.4); POTASSIUM SERUM 3.3 mmol/L (3.5-5.1); SODIUM SERUM 137 mmol/L (136-145)
--- NOTE | 2020-02-15 16:53 | NUR ---
INFORMED DR. MARTELL OF K+ LEVEL 3.3. NO ORDERS RECEIVED AT THIS TIME.
--- NOTE | 2020-02-15 16:55 | NUR ---
PLACED ORDER TO GIVE POTASSIUM SUPPLEMENT FOR K+ 3.3
--- NOTE | 2020-02-15 17:21 | NUR ---
CC has received packet.
[2020-02-15 17:24] VITALS: BP 125/87
--- NOTE | 2020-02-15 17:27 | NUR ---
Packet referred to [facility] and [facility].
--- NOTE | 2020-02-15 20:02 | NUR ---
RECEIVED REPOT FROM OUTGOING NURSE FLAQUITO ROSEN. PATIENT IN BED ,AWAKE,ALERT, AND ORIENTED,FLAT AFFECT BUT ABLE TO LET NEEDS KNOWN TO OTHERS AND FOLLOW SIMPLE COMMAND.ON 1;1 SITTER FOR SAFETY. RESPIRATION EVEN AND UNLABORED,NO REP. DISTRESS. ON NSR/ST TELE #7 DENIES PAIN AND DISCOMFORT.PATIENT SELF TURN AND ENCOURAGED TO REPOSITION SELF. CALL LIGHT WITHIN REACH.
[2020-02-15 21:32] VITALS: BP 100/62
--- NOTE | 2020-02-16 04:09 | NUR ---
S/W CN, patient pending medical clearance of US of abdomen before placement. New [id number] written. Waitng for new fax
[2020-02-16 05:07] VITALS: BP 99/56
--- NOTE | 2020-02-16 07:38 | NUR ---
Received report. Per animal breeder, patient is pending medical clearance and new [phone] hold.
[2020-02-16 10:23] VITALS: BP 102/69
[2020-02-16 13:08] LABS: BASOPHIL % 0.4 % (0.2-1.5); PLATELET COUNT 137 x10^3mcL (152-348); RED CELL DISTRIBUTION WIDTH 13.5 % (12.1-16.2)
[2020-02-16 13:15] VITALS: BP 120/84
[2020-02-16 13:23] LABS: CALCIUM 8.1 mg/dL (8.5-10.1); CARBON DIOXIDE 22.1 mmol/L (21-32); CHLORIDE SERUM 104 mmol/L (98-107); GFR1 > 60 mL/min; GLUCOSE SERUM 123 mg/dL (74-106); MAGNESIUM 2.2 mg/dL (1.8-2.4); PHOSPHOROUS 2.5 mg/dL (2.5-4.9); POTASSIUM SERUM 3.6 mmol/L (3.5-5.1); SODIUM SERUM 136 mmol/L (136-145)
[2020-02-16 13:38] LABS: BILIRUBIN DIRECT 0.42 mg/dL (0.0-0.2); BILIRUBIN TOTAL 0.89 mg/dL (0.20-1.00); TOTAL PROTEIN, SERUM 6.5 g/dL (6.4-8.2)
[2020-02-16 13:45] LABS: ALBUMIN 2.2 g/dL (3.4-5.0)
--- NOTE | 2020-02-16 15:36 | NUR ---
1. Continue with puree diet with NTL 2. Recommend additional ensure QD for 350kcal and 20g protein.
--- NOTE | 2020-02-16 15:36 | NUR ---
Follow-up Nutrition Assessment: 248A YONG LAKE 29M HR Dx: Respiratory failure, ALOC PMHx: Psychosis, none noted PSHx: none noted Labs: (02/14) H/H 12.2/36L, K 3.3L, BG 125H, Lipase 1069H (02/11) BG 124H, Mg 2.5H, (02/07) albumin 3.2L, (02/06) CRP 1.3H, TAG 177H, HDL 22L, Amylase 223H, Lipase 758H, A1C 6% Meds: Pepcid, Lexapro, Heparin sodium, Zosyn, Desyrel, D5%, Risperdal, Colace, Zofran Diet: Puree diet with nectar thick liquid PO Intake: No PO intake recorded since 02/13 Wt: 104kg/229lbs BMI: 32kg/m2 Edema: none noted Last BM: 02/13 Skin: skin intact Luis Manuel: [address] note (02/12), Per progress note (02/12), Per psych consult by Dr. Calloway: 1. Unspecified psychosis, 2. high suspicion for prodromal schizophrenia, and 3. R/o any substance-induced symptoms. Pt was seen lying in bed and verbally responsive during visit. TF was not in place. Per pt, he didn't have GI distress, but pt had c/o swallowing difficulty. Pt could not recall if there was recent weight changes and his usual body weight was 280lbs. Pt could not recall when was UBW measured. Spoke with pt's RN, and RN reported that pt used to be on tube feeding, but right now pt is NPO d/t pending swallow evaluation. Pt was admitted with dx: Acute metabolic encephalopathy, acute hypoxic respiratory failure, rhabdomyolysis, DVT. RD Note (02/16/2020): Per AUTOMATION CONTROLS SPECIALIST note (02/12), pt was able to safely swallow puree diet with nectar thick liquid. Per progress note (02/15) pt stated that he feels tired and that his face hurts. He states that he is unable to walk d/t generalized weakness. RD was able to speak with pt during visit. Per pt, he was able to tolerate yogurt, and he was feeling hungry. Pt had an episode of vomiting 2 days ago, but not at the moment. Per pt, he did not have trouble chewing/swallowing with current diet texture, but he did not drink his ONS d/t not being able to feel the liquid when it goes down his throat. Asked pt regarding changing his ONS to ensure pudding, but pt said that he preferred liquid. Spoke with pt's RN, pt was not eating well and stating that he was not able to chew/swallow, but RN mentioned that it could be d/t pt's psychosis. Estimated Nutritional Needs Based on adjusted body weight (85kg) Energy: 6743-5126 kcal/day (22-25 kcal/kg for weight reduction) Protein: 85-102 g/day (1-1.2 g/kg for lean body mass preservation) Fluid: 1553-3954 mL/day (1 mL/kcal) Nutrition Diagnosis: 1. Inadequate energy and protein intake r/t poor PO intake a/e/b RN reported poor PO intake. (modified, ongoing) Intervention 1. Continue with puree diet with NTL 2. Recommend additional ensure QD for 350kcal and 20g protein. Monitor/Evaluate Goal: PO intake at least 75% of estimated needs Monitor: PO intake, Labs, GI function, ONS intake F/U in 2-3 days as high risk 02/17-
[2020-02-16 17:01] VITALS: BP 113/73
[2020-02-16 22:01] VITALS: BP 136/86
[2020-02-17 04:00] VITALS: BP 120/72
--- NOTE | 2020-02-17 06:48 | NUR ---
Patient remains alert with periods of confusion. Has 1:1 sitter at side for safety measures. Continent of B&B. IV fluids ongoing at 100 ml/hr. IV site clear and benign. ALL NEEDS MET, NO DISTRESS NOTED.
--- NOTE | 2020-02-17 07:30 | NUR ---
RECEIVED PATIENT IN BED, AWAKE, ALERT PERSIODS OF CONFUSION NOTED. 1-1 SITTER AT BEDSIDE. TELE 1 NSR AT THIS TIME. PATIENT IS SLOW TO RESPIND AT TIMES. RESP EVEN AND UNLABORED, ON O2 AT 2L VIA N/C, LUNGS DIMINISHED. IVFINFUSING WELL TO LEFT HAND, SITE PATENT. TOLERATIND PUREED DIET. ASSISTED WITH URINAL AND BEDPAN PRN. WILL CONTINUE TO MONITOR.
[2020-02-17 07:55] LABS: BASOPHIL % 0.3 % (0.2-1.5); PLATELET COUNT 138 x10^3mcL (152-348); RED CELL DISTRIBUTION WIDTH 13.6 % (12.1-16.2)
[2020-02-17 08:17] LABS: CARBON DIOXIDE 21.6 mmol/L (21-32); CHLORIDE SERUM 105 mmol/L (98-107); GFR1 > 60 mL/min; GLUCOSE SERUM 131 mg/dL (74-106); MAGNESIUM 2.2 mg/dL (1.8-2.4); PHOSPHOROUS 2.3 mg/dL (2.5-4.9); POTASSIUM SERUM 3.9 mmol/L (3.5-5.1); SODIUM SERUM 137 mmol/L (136-145)
[2020-02-17 11:01] VITALS: BP 121/87
--- NOTE | 2020-02-17 16:34 | NUR ---
PATIENT REMAINS IN BED. IV SITE INFLITRATED NEW IV STARTED ON RIGHT HANE BY JOSE ANTONIO HUDDLESTON. IVF INFUSING WELL. PATIENT HAS BEEN CALM AND COOPERATIVE. NO ACUTE DISTRESS NOTED. WILL CONTINUE TO MONITOR.
--- NOTE | 2020-02-17 17:01 | NUR ---
I HAVE REVIEWED THE DATA COLLECTION BY T[employer]PER BALANCE WHEEL SCREW HOLE (NAME): ENTERED ON (DATE/TIME): I CONCUR WITH THE DATA AND ANY EXCEPTIONS OR COMMENTS ARE LISTED BELOW: PATIENT'S PLAN OF CARE WAS DISCUSSED AND REVIEWED WITH TAPPER BALANCE WHEEL SCREW HOLE:LORA SMITH
--- NOTE | 2020-02-17 18:21 | NUR ---
PATIENT REMAINS IN BED, CALM AND COOPERATIVE AT THIS TIME. O2 ON AT 2L VIA N/C. IVF INFUSING WELL TO RIGHT HAND. NO ACUTE DISTRESS NOTED. CALL LIGHT WITHIN REACH AND PATIENT INSTRUCTED TO USE FOR ASSIST.
[2020-02-17 21:35] VITALS: BP 127/80
--- NOTE | 2020-02-17 23:43 | NUR ---
1999 PATIENT IN BED. A/0 X4. PATIENT INCONTINENT AND HAD A VERY LARGE BM WITH THE WHOLE BED SOILED. FULL BED BATH AND CHG BATH DONE WITH FULL LINEN CHANGE. NO S/S OF DISTRESS, NO SOB. ON NASAL CANULA AT 2L. SATURATION WNL. GENERALIZED WEAKNESS. REPOSITIONED. UNSTAGABLE/HEALING ULCER ON STAR BUTTOCKS. Z-GUARD APPLIED AND FOAM DRESSING APPLIED. ASSISTED WITH REPOSITIONING. PATIENT IS CALM IN BED. FREQUENT ROUNDING AND CLOSE TO NURSES STATION. BED IN LOWEST POSITION, CALL LIGHT WITHIN REACH. DENIES PAIN. WILL CONTINUE TO MONITOR.
[2020-02-18 06:15] VITALS: BP 110/80
--- NOTE | 2020-02-18 07:51 | NUR ---
RECEIVED AWAKE AND ALERT. SLOW TO RESPOND BUT ABLE TO MAKE NEEDS KNOWNS. ON O2 2L N/C SATS 96%. NO SON NOTED. NO ACUTE RESP. DISTRESS. VS WNL. CALL LIGHT WITHIN REACH AND SAFETY MEASURES IN PLACE. WILL CONTINUE WITH PLAN OF CARE.
[2020-02-18 12:25] VITALS: BP 133/82
--- NOTE | 2020-02-18 15:59 | NUR ---
RESTING IN BED. NO DISTRESS NOTED. NO C/O PAIN OR DISCOMFORT. SAFETY MEASURES IN PLACE. CALL LIGHT WITHIN REACH.
[2020-02-18 18:38] VITALS: BP 134/85
--- NOTE | 2020-02-18 18:51 | NUR ---
REMAINS IN NO ACUTE RESP. DISTRESS. HAS O2 OFF MOST OF THE TIME TODAY AND O2 SATS 97%. NO SOB NOTED. VS REMAINS WNL. SITTER AT BEDSIDE AND SAFETY MEASURES IN PLACE. NO C/O PAIN OR DISCOMFORT. CALL LIGHT WITHIN REACH. WILL BE ENDORSED TO INCOMING SHIFT.
--- NOTE | 2020-02-18 21:28 | NUR ---
LATE ENTRY: 2000H - AWAKE, ALERT, SOMEWHAT SLOW TO ANSWER. GENERALIZED WEAKNESS. BREATHING EVEN AND UNLABORED ON ROOM AIR. LUNG SOUNDS DIMINISHED TO BASES. MED SURG PT. DENIES HAVING PAIN. SITTER AT BEDSIDE. DENIES HAVING SUICIDE IDEATION AT THIS TIME. IVF OF D5NS AT 100ML/HR. CALL LIGHT WITHIN EASY REACH. HOB ELEVATED 30 DEG.
[2020-02-18 21:30] VITALS: BP 128/79
[2020-02-19 00:27] LABS: TOTAL PROTEIN, SERUM 5.8 g/dL (6.4-8.2)
[2020-02-19 00:28] LABS: ALBUMIN 2.3 g/dL (3.4-5.0); BILIRUBIN DIRECT 0.41 mg/dL (0.0-0.2); BILIRUBIN TOTAL 0.8 mg/dL (0.20-1.00)
--- NOTE | 2020-02-19 00:33 | NUR ---
EYES CLOSED, BREATHING EVEN AND UNLABORED ON ROOM AIR. HOB ELEVATED 30 DEG. SITTER IN ROOM. CALL LIGHT WITHIN EASY REACH.
--- NOTE | 2020-02-19 02:36 | NUR ---
EYES CLOSED, BREATHING UNLABORED ON ROOM AIR. SITTER IN ROOM. CALL LIGHT WITHIN EASY REACH. IVF INFUSING WELL.
--- NOTE | 2020-02-19 04:44 | NUR ---
OPTIFOAM DRESSING TO BUTTOCKS/SACRUM/COCCYX PEELED OFF. NOTED SEVERAL AREAS OF OPEN SKIN, LARGEST OF WHICH IS ON THE RIGHT BUTTOCK 7X6 CM. AREAS OF OPEN SKIN PINK IN COLOR, NO DRAINAGE, NO ODOR. Z GUARD APPLIED TO AFFECTED AREAS. NEW OPTIFOAM DRESSING APPLIED. INSTRUCTED PT TO TURN AND REPOSITION FREQUENTLY. PT ABLE TO TURN SELF ON BED.
--- NOTE | 2020-02-19 04:53 | NUR ---
PAGED DR. CISNEROS REGARDING OBSERVED SKIN ALTERATIONS.
--- NOTE | 2020-02-19 05:06 | NUR ---
[facility] still aware of patient. 5150 02/18/20. Patient will need a re evaluation and if patient meets criteria Call Center will continue to assist with placement.
--- NOTE | 2020-02-19 05:20 | NUR ---
AWAIT CALL BACK. PAGED DR. LEVINE
--- NOTE | 2020-02-19 05:52 | NUR ---
STILL WAITING CALL BACK FROM [facility]ID[facility]. ATTEMPTED TO CALL RESIDENTS CALL PHONE, UNABLE TO REACH. INFORMED CN. SANTIAGO.
--- NOTE | 2020-02-19 05:57 | NUR ---
SLEPT THROUGH MOST OF SHIFT. BREATHING REMAINED EVEN AND UNLABORED ON ROOM AIR. PT LYING ON HIS RIGHT SIDE. SITTER IN ROOM. IVF INFUSING WELL. IV SITE FREE FROM REDNESS OR SWELLING. OPTIFOAM DRESSING TO BUTTOCKS CDI.
--- NOTE | 2020-02-19 06:12 | NUR ---
DR. CISNEROS CALLED,INFORMED OF SKIN ALTERATIONS TO BUTTOCKS.
--- NOTE | 2020-02-19 06:24 | NUR ---
NOTED NEW ORDER FOR WOUND CONSULT
[2020-02-19 06:32] VITALS: BP 107/65
[2020-02-19 08:18] VITALS: BP 130/76
--- NOTE | 2020-02-19 09:21 | NUR ---
RECEIVED AWAKE AND ALERT. IN NO ACUTE RESP. DISTRESS, VS WNL. ON RA THIS AM SATS 95%. NO C/O PAIN OR DISCOMFORT AT THIS TIME. NO SUICIDAL IDEATION. SITTER AT BEDSIDE. CALL LIGHT WITHIN REACH. WILL CONTINUE WITH PLAN OF CARE.
[2020-02-19 11:05] LABS: PLATELET COUNT 172 x10^3mcL (152-348); RED CELL DISTRIBUTION WIDTH 14.1 % (12.1-16.2)
[2020-02-19 11:23] LABS: ALKALINE PHOSPHATASE 127 U/L (46-116); ALT/SGPT 335 U/L (16-63); AST/SGOT 79 U/L (15-37); BILIRUBIN TOTAL 0.85 mg/dL (0.20-1.00); CALCIUM 8.8 mg/dL (8.5-10.1); CARBON DIOXIDE 24.8 mmol/L (21-32); CHLORIDE SERUM 104 mmol/L (98-107); GFR1 > 60 mL/min; GLUCOSE SERUM 108 mg/dL (74-106); POTASSIUM SERUM 3.9 mmol/L (3.5-5.1); SODIUM SERUM 139 mmol/L (136-145); TOTAL PROTEIN, SERUM 7.1 g/dL (6.4-8.2)
[2020-02-19 11:24] LABS: ALBUMIN 2.2 g/dL (3.4-5.0)
[2020-02-19 14:10] VITALS: BP 118/84
--- NOTE | 2020-02-19 14:27 | NUR ---
Follow-up Nutrition Assessment: 248A [place] 29/M Dx: Respiratory failure, ALOC PMHx: Psychosis, none noted PSHx: none noted Labs: (02/17) H/H 11.7/35L, BG 108H, BILI 0.41H, AST 79H, ALT 335H, ALKPHOS 127H, ALB 2.2L, LIPASE 952H (02/14) H/H 12.2/36L, K 3.3L, BG 125H, Lipase 1069H (02/11) BG 124H, Mg 2.5H, (02/07) albumin 3.2L, (02/06) CRP 1.3H, TAG 177H, HDL 22L, Amylase 223H, Lipase 758H, A1C 6% Meds: Pepcid, Lexapro, Heparin sodium, Zosyn, Desyrel, D5%, Risperdal, Colace, Zofran Diet: Puree diet with nectar thick liquid PO Intake: (02/17) 100% X 1 meal Wt: 104kg/229lbs BMI: 32kg/m2 Edema: none noted Last BM: 02/13 Skin: skin intact Luis Manuel: [address] (02/16/2020): Per BROTH SETTER note (02/12), pt was able to safely swallow puree diet with nectar thick liquid. Per progress note (02/15) pt stated that he feels tired and that his face hurts. He states that he is unable to walk d/t generalized weakness. RD was able to speak with pt during visit. Per pt, he was able to tolerate yogurt, and he was feeling hungry. Pt had an episode of vomiting 2 days ago, but not at the moment. Per pt, he did not have trouble chewing/swallowing with current diet texture, but he did not drink his ONS d/t not being able to feel the liquid when it goes down his throat. Asked pt regarding changing his ONS to ensure pudding, but pt said that he preferred liquid. Spoke with pt's RN, pt was not eating well and stating that he was not able to chew/swallow, but RN mentioned that it could be d/t pt's psychosis. Per RD note (02/18): Pt remains on room air with negative COVID PCR and antigen test. Still noted to be confused with unclear etiology/ unspecified psychosis per progress note. Has been intervened for increase oral intake, only 1 meal noted 100% on 02/17/ yesterday. Has a pureed diet with normal liquid texture. No active oral supplements, planned to be TRANSFER TO INPATIENT PSYCHIATRY WHEN MED CLEARED. Recommendations in place will monitor. Estimated Nutritional Needs Based on adjusted body weight (85kg) Energy: 2427-2610 kcal/day (22-25 kcal/kg for weight reduction) Protein: 85-102 g/day (1-1.2 g/kg for lean body mass preservation) Fluid: 0662-7432 mL/day (1 mL/kcal) Nutrition Diagnosis: 1. Inadequate energy and protein intake r/t poor PO intake a/e/b RN reported poor PO intake, only 1 meal 100%. (modified, ongoing) Intervention 1. Continue with puree diet with NTL 2. On follow up if oral intake remains poor consider additional ensure QD for 350kcal and 20g protein. Monitor/Evaluate Goal: PO intake at least 75% of estimated needs Monitor: PO intake, Labs, GI function, ONS on f/u F/U in 3-5 days as moderate risk 02/21-
--- NOTE | 2020-02-19 14:27 | NUR ---
1. Continue with puree diet with NTL 2. On follow up if oral intake remains poor consider additional ensure QD for 350kcal and 20g protein.
--- NOTE | 2020-02-19 15:03 | NUR ---
RESTING IN BED, NO DISTRESS NOTED. NO C/O PAIN OR DISCOMFORT. SITTER AT BEDSIDE.
[2020-02-19 17:05] VITALS: BP 132/85
--- NOTE | 2020-02-19 18:32 | NUR ---
PT REMAINS IN NO ACUTE DISTRESS. AWAKE AND ALERT. RESTING IN BED WITH HOB ELEVETED. PT REPORTED ABD. DISCOMFORT WHEN EATING BUT STATED HE THINKS HE MAY NEED TO USE THE BATHROOM. BEDPAN OFFERED. NO OTHER COMPLAINTS AT THIS TIME. VS WNL. IVF INFUSING WELL AND SITE CLEAR..SAFETY MEASURES IN PLACE AND CALL LIGHT WITHIN REACH. WILL BE ENDORSED TO INCOMING SHIFT.
[2020-02-19 19:15] LABS: BAND NEUTROPHIL 3 % (0-10); BASOPHIL 0 % (0-2); METAMYELOCTE 2 % (0-2); MONOCYTE 10 % (0-7); SEGMENTED NEUTROPHILS 66 % (37-75)
[2020-02-19 19:17] LABS: PLATELET MORPHOLOGY PLATELETS NORMAL; rbc morphology (normal/abnorm) NORMAL (NORMAL)
[2020-02-19 21:29] VITALS: BP 127/83
--- NOTE | 2020-02-19 22:20 | NUR ---
LATE ENTRY: 191H - AWAKE AND ALERT, ORIENTED TO NAME, PLACE, TIME. SOMEWHAT SLOW TO ANSWER. HOB ELEVATED 30 DEG. WATCHING TV AT THIS TIME. MED SURG PT, DENIES HAVING CHEST PAIN. ON ROOM AIR, BREATHING EVEN AND UNLABORED O2 SAT 96%. OPTIFOAM DRESSING TO BUTTOCKS/SACRUM CDI. PT REPOSITIONS SELF IN BED. IVF OF D5NS INFUSING WELL AT 100ML/HR. DENIES HAVING SUICIDE IDEATION AT THIS TIME. CALM AND COOPERATIVE W/ CARE. CALL LIGHT WITHIN EASY REACH.
--- NOTE | 2020-02-20 00:50 | NUR ---
EYES CLOSED, EASILY AWAKENED. ENCOURAGED TO REPOSITON TO THE OTHER SIDE. COMPLIANT. BREATHING EVEN AND UNLABORED ON ROOM AIR. HOB KEPT ELEVATED 30 DEG. YANDEL REYNOSO HAS BEEN SITTING IN ROOM.
[2020-02-20 05:33] VITALS: BP 122/76
--- NOTE | 2020-02-20 06:13 | NUR ---
SLEPT THROUGH MOST OF SHIFT, EASILY AWAKENED. BREATHING REMAINED EVEN AND UNLABORED ON ROOM AIR. PT REPOSITIONED SELF IN BED. YANDEL REYNOSO IN ROOM WITH PT. BED ALARM ON. CALL LIGHT WITHIN EASY REACH.
[2020-02-20 07:48] LABS: PLATELET COUNT 193 x10^3mcL (152-348); RED CELL DISTRIBUTION WIDTH 13.6 % (12.1-16.2)
[2020-02-20 08:23] LABS: ALBUMIN 2.3 g/dL (3.4-5.0); ALKALINE PHOSPHATASE 129 U/L (46-116); ALT/SGPT 317 U/L (16-63); AST/SGOT 70 U/L (15-37); BILIRUBIN TOTAL 0.75 mg/dL (0.20-1.00); CALCIUM 8.6 mg/dL (8.5-10.1); CARBON DIOXIDE 24.4 mmol/L (21-32); CHLORIDE SERUM 104 mmol/L (98-107); GFR1 > 60 mL/min; GLUCOSE SERUM 120 mg/dL (74-106); POTASSIUM SERUM 3.8 mmol/L (3.5-5.1); SODIUM SERUM 137 mmol/L (136-145)
[2020-02-20 08:24] LABS: BASOPHIL % 3.6 % (0.2-1.5)
--- NOTE | 2020-02-20 08:45 | NUR ---
Received report. [facility] aware patient's hold is . Will resume palcement once new 5150 is written.
[2020-02-20 09:12] VITALS: BP 128/65
[2020-02-20 16:43] VITALS: BP 141/80
--- NOTE | 2020-02-20 19:35 | NUR ---
ENDORSED CARE TO NEXT SHIFT
--- NOTE | 2020-02-20 20:00 | NUR ---
RECEIVED PT IN BED AWAKE, ALERT, ORIENTED X4. SLOW TO RESPOND. PT C/O DIZZINESS WITH MOVEMENT. NO TELE MONITOR NOTED. DENIES CHEST PAIN OR PRESSURE. PT ON ROOM AIR, BREATHING EASILY. BS ACTIVE IN ALL FOUR QUADS. PT C/O MILD DISCOMFORT TO LOWER ABD AREA. OPTIFOAM TO BUTTOCKS, NO DRAINAGE NOTED. GENERALIZED WEAKNESS NOTED. FULL PASSIVE ROM. IV TO RIGHT HAND, SITE INTACT. SHIFT ASSESSMENT COMPLETED. CALL LIGHT WITHIN REACH. BED IS IN LOWEST POSITION. WILL CONTINUE TO MONITOR CLOSELY.
[2020-02-20 21:55] VITALS: BP 123/78
--- NOTE | 2020-02-20 22:00 | NUR ---
PT REFUSED COLACE, LACTULOSE, AND KCL PO. EXPLAINED THE IMPORTANCE OF MEDICATION, PT STILL REFUSED. ZOSYN INFUSING WELL AT THIS TIME. WILL CONTINUE TO MONITOR CLOSELY.
--- NOTE | 2020-02-20 22:53 | NUR ---
Awaiting for new [phone] to be faxed tp Call Center for placement. Please fax new [phone] to [phone]
--- NOTE | 2020-02-21 | NUR ---
PT APPEARS TO BE SLEEPING WITH EYES CLOSED IN NO DISTRESS. WILL CONTINUE TO MONITOR CLOSELY.
--- NOTE | 2020-02-21 06:50 | NUR ---
PT SLEPT WELL THROUGH OUT SHIFT, HOWEVER PT STATES HE DID NOT SLEEP AT ALL. THROUGH OUT THE NIGHT I OBSERVED PT WITH EYES CLOSED AND APPEARED TO BE SLEEPING. ZOSYN INFUSING WELL AT THIS TIME. CALL LIGHT WITHIN REACH. WILL ENDORSE TO INCOMING SHIFT.
[2020-02-21 06:56] VITALS: BP 120/84
--- NOTE | 2020-02-21 07:30 | NUR ---
PATIENT RESTING IN BED, REPIRATIONS EVEN AND UL ON RA. DENIES PAIN AND DISCOMFORT. BED IN LOWEST POSITION, CALL LIGHT IN EASY REACH, SAFETY MEASURES IN PLACE.
[2020-02-21 09:17] LABS: ALBUMIN 2.5 g/dL (3.4-5.0); ALKALINE PHOSPHATASE 129 U/L (46-116); ALT/SGPT 281 U/L (16-63); BILIRUBIN TOTAL 0.73 mg/dL (0.20-1.00); CALCIUM 8.9 mg/dL (8.5-10.1); CARBON DIOXIDE 23.1 mmol/L (21-32); CHLORIDE SERUM 103 mmol/L (98-107); CREATININE SERUM 0.9 mg/dL (0.7-1.3); GFR1 > 60 mL/min; GLUCOSE SERUM 92 mg/dL (74-106); SODIUM SERUM 136 mmol/L (136-145); TOTAL PROTEIN, SERUM 7.3 g/dL (6.4-8.2)
[2020-02-21 09:18] LABS: AST/SGOT 63 U/L (15-37); POTASSIUM SERUM 4.3 mmol/L (3.5-5.1)
[2020-02-21 10:44] VITALS: BP 123/90
[2020-02-21 11:28] LABS: PLATELET COUNT 232 x10^3mcL (152-348); RED CELL DISTRIBUTION WIDTH 14.3 % (12.1-16.2)
[2020-02-21] MEDS ORDERED: LEXAPRO10 MG PO (11:37)
[2020-02-21] MEDS ORDERED: TRA50 PO (11:37)
[2020-02-21] MEDS ORDERED: RIS0.25 PO (11:38)
[2020-02-21] MEDS ORDERED: L20 PO (11:38)
[2020-02-21] MEDS ORDERED: KLOR-CON 88 MEQ PO (11:40)
--- NOTE | 2020-02-21 12:24 | NUR ---
WOUND CARE EVALUATION NOTE: SKIN ASSESSMENT DONE TO THIS 29 Y/O MALE PT. PT. IS AWAKE, ABLE TO TURN AND REPOSITION, PT. IS INCONTINENT OF BLADDER, WHEN ASKED IF HE CAN USE URINAL, PT.DOEST NOT ANSWER. POC DISCUSSED WITH PT. PT. DOES NOT ANSWER. -SEVERE MAD TO RIGHT BUTTOCK 2 SITES SKIN EROSIONS 3X2CM AND 3X3CM ,BOTH SUPERFICIAL DEPTH, WOUND BED 100% GRANULATING TISSUES, ALDO WOUND SKIN DENUDER EXTENDED TO BUTTOCK GROOVE. FURTHER DAMAGE INDICATED -SEVERE MAD TO LEFT BUTTOCK SKIN EROSION 4X2CM SUPERFICIAL DEPTH, WOUND BED 100% GRANULATING TISSUE, MOIST, NO ODOR, ALDO WOUND SKIN DENUDED/PEELING RECOMMENDATIONS: -CLEANSE RIGHT AND LEFT BUTTOCKS WOUND WITH NS, APPLY Z GUARD TO WOUND BED AND COVER WITH FOAM DRESSING QD AND PRN IF SOILING -APPLY FOAM DRESSING TO SACRALCOCCYX CHANGE PRN IF SOILING PREVENTION -ENCOURAGE TOILETING, TURN AND REPOSITION Q 2H -ASSESS AND MONITOR SKIN CONDITION DURING POSITION CHANGE -OFFLOAD BILATERAL HEELS BY PLACING PILLOWS UNDER CALVES AT ALL TIMES, UNLESS OTHERWISE CONTRAINDICATED -PRESSURE REDISTRIBUTION BY PLACING PILLOWS AND OFFLOADING SACRALCOCCYX -KEEP SKIN CLEAN AND DRY AT ALL TIMES.
[2020-02-21 13:03] VITALS: BP 123/90
--- NOTE | 2020-02-21 13:31 | NUR ---
PATIENT TAKEN DOWN TO MAIN LOBBY BY YANDEL AND DISCHARGED WITH SISTER CURLY. PATIENT DISCHARGED WITH ALL BELONGINGS.
[2020-02-21 14:01] LABS: BAND NEUTROPHIL 2 % (0-10); MONOCYTE 8 % (0-7); PLATELET MORPHOLOGY PLATELETS NORMAL; SEGMENTED NEUTROPHILS 73 % (37-75); rbc morphology (normal/abnorm) NORMAL (NORMAL)
--- NOTE | 2020-02-21 14:30 | NUR ---
RECEIVED DISCHARGE ORDER, PRINTED DISCHARGE INSTRUCTIONS/PACKET GIVEN AND EXPLAINED TO PATIENT, ALL QUESTIONS ANSWERED AT THIS TIME. PATIENT VERBALIZED UNDERSTANDING OF ALL INSTRCUTIONS. PHOTO DOCUMENTATION TAKEN OF BUTTOCK WOUND AND PLACED IN CHART, WOUND CLEANSED WITH NS, PAT DRY, Z-GAURD APPLIED AND COVERED WITH OPTIFOAM. PATIENT GIVEN 1 WEEK OF WOUND CARE SUPPLIES AND VERBALIZED UNDERSTANDING OF WOUND CARE. IV SITE REMOVED, CATH INTACT, BANDAID APPLIED, NO BLEEDING NOTED. PATIENT DRESSED AND PREPARED FOR DISCHARGE. AWATING PICK-UP FROM SISTER MAGAN PER CASE MANAGEMENT MILAN.
== END 2020-02-21 15:31 | disposition home or self-care (01) | DRG 208 ==
LOC: ED 09:53 → MU 21:26 → IW 02-10 04:14 → DU 02-13 00:41 → MU 02-17 23:55
PROVIDERS: Family Medicine; Specialist; ADMIT Internal Medicine; ATTEND Internal Medicine
PROC: 5A1945Z Respiratory Ventilation, 24-96 Consecutive Hours (ICD-10-PCS; principal; 2020-02-10)
PROC: 0BH17EZ Insertion of Endotracheal Airway into Trachea, Via Natural or Artificial Opening (ICD-10-PCS; 2020-02-10)
DX: J18.1 Lobar pneumonia, unspecified organism (principal); G93.41 Metabolic encephalopathy; J96.01 Acute respiratory failure with hypoxia; F23 Brief psychotic disorder; M62.82 Rhabdomyolysis; Z20.822 Contact with and (suspected) exposure to COVID-19; F21 Schizotypal disorder
CPT/HCPCS: 36600; 82962; 83880; 84439; 92526-GN; 92610-GN; 94150; 97110-GP; 97112-GP; 97530-GP; G0378; G0480; J0330; J0456; J0696; J1630; J1644; J1940; J2060; J2310; J2405; J2543; J2704; J3490; J7030; J7042; J7050; J7060; Q9967; U0003